=== PATIENT | male | born 1995 | race Caucasian/White ===

== ENCOUNTER 2020-02-01 18:52 | Emergency (ER) | payer SELFPAY ==
[2020-02-01 19:03] VITALS: BP 160/96; PULSE 96; RESP 20; TEMP 37.1; O2SAT 98; BMI 25.0
[2020-02-01 19:17] LABS: Apearance,Urine Cloudy (Clear); Color,Urine Dark Yellow (Yellow); PH,Urine 5.5 (5.0-8.5)
[2020-02-01 19:18] LABS: Bilirubin,Urine 1+ (Negative); Blood, Urine 3+ (Negative); Glucose,Urine (UA) 100 (Negative); Ketones,Urine Negative (Negative); Protein,Urine 1+ (Negative); Specific Gravity, Urine 1.025 (1.005-1.030); UTC Leukocyte Esterase,Urine Negative (Negative); UTC Nitrate,Urine Negative (Negative); Urobilinogen,Urine 0.2 EU/dl (0.2)
--- NOTE | 2020-02-01 19:23 | CT_ITS ---
Procedure: CT ABDOMEN PELVIS WO CON Patient Age:24Y CLINICAL INDICATION: kidney stone Left-sided flank pain with vomiting 3 days. No prior studies COMPARISON: No exams were available for comparison TECHNIQUE: . No IV contrast. Helical axial images obtained with sagittal and coronal reformats. All CT scans at the facility use one or more dose reduction, viz: automated exposure control, ma/kV adjustment per patient size (including targeted exams where dose is matched to indication, i.e. head), or iterative reconstruction technique. FINDINGS: Lower thorax: No acute finding settled basilar atelectasis dependent aspect lower lobes at lung bases. Heart normal size the the ABDOMEN/pelvis but lack of oral and IV contrast decrease sensitivity in particularly evaluate organs: Liver: Diffuse fatty changes of liver but no significant focal lesions or mass. Mild fatty sparing about gallbladder fossa. Gallbladder: Unremarkable but images here is slightly degraded due to streak artifact from adjacent bowel gas/motion Pancreas: Unremarkable on this noncontrast study. Spleen: unremarkable, a normal size Adrenals: unremarkable ---- tract--obstructive uropathy on the left-.: Right kidney.: 2Nonobstructive calculi: 3.5 mm stone mid/upper right kidney 3.5 mm size. Also the 3 mm calculus lower pole right kidney Left kidney: Moderate left hydronephrosis and mild ureteral dilatation down to the level of sacrum due to a 2.5 mm ureteral stone of which approximately at the level of S1/S2, axial image 85 The remaining pelvic ureter distal to this unremarkable.. No additional calculi at the left kidney . Urinary bladder with borderline to mild wall thickness which suspect most likely reflects its lack of distension.. No bladder stones or calculi evident Prostate unremarkable. No free fluid pelvis . ---GI tract: -- Stomach moderately distended, food and fluid-filled stomach No obvious mass or thickening. Small bowel: No obstruction. Upper normal caliber proximal small bowel. Terminal ileum: Undigested food like material distal ileum may reflect diminished peristalsis or incompetent IC valve Appendix: Normal unremarkable. No inflammation Large bowel. Moderate stool and gas throughout the right and transverse colon. Upper normal wall thickness of descending colon and rectosigmoid most likely reflects lack of distension. No pericolic inflammation to suggest colitis Peritoneum: No abnormal fluid collections. No obvious inflammatory changes. No free air. Lymph nodes: No enlarged lymph nodes apparent. Vasculature: . unremarkable no significant findings Osseous structures unremarkable IMPRESSION: 1. obstructive uropathy on the left Mild left hydronephrosis with dilatation left ureter down to the sacrum-due to a 2.5 mm distal left ureteral stone 2. Also incidentally note 2 small nonobstructive calculi at right kidney 3. Diffuse fatty changes the liver/hepatic steatosis . Dictated by: Saurav Diaz MD 02/02/2020 08:48 Electronically signed by Saurav Diaz MD in [place] 02/02/2020 08:48
--- NOTE | 2020-02-01 19:30 | PC.NURSE ---
report received from lani in [facility] for patient to come to ed.
[2020-02-01 19:31] VITALS: BP 122/66; PULSE 90; RESP 20; TEMP 37.3; O2SAT 99; BMI 24.9
--- NOTE | 2020-02-01 19:31 | HMH.EDUTC ---
[facility] [place] Impression: Left flank pain Hematuria Qualifiers: Hematuria type: gross Qualified Code(s): R31.0 - Gross hematuria Disposition: Still a Patient Condition on Discharge: Fair Time of Disposition: 19:20 Medical Decision Making - Medical Records Medical records reviewed: No: I reviewed the patient's medical records. - Bentley Inquiry Pt receiving controlled substance: No Vital Signs: 02/01/20 19:03 Temperature 98.7 F Temperature Source Oral Pulse Rate [Right Brachial] 96 H Respiratory Rate 20 Blood Pressure [Right Arm] 160/96 H Blood Pressure Mean [Right Arm] 117 Blood Pressure Source [Right Arm] Automatic Cuff Blood Pressure Position [Right Arm] Sitting 02 Sat by Pulse Oximetry 98 Oxygen Delivery Method Room Air - Lab Data Lab Results 02/01/20 19:12: Urine Color Dark yellow, Urine Appearance Cloudy, Urine pH 5.5, Ur Specific [place] 1.025, Urine Protein 1+, Urine Glucose (UA) 100, Urine Ketones Negative, Urine Blood 3+, Urine Nitrate Negative, Urine Bilirubin 1+ A, Urine Urobilinogen 0.2, Ur Leukocyte Esterase Negative Orders (Tests/Meds): ED MEDICATIONS Generic Name Dose Route Start Last Admin Trade Name Freq PRN Reason Stop Dose Admin Sodium Chloride 1,000 mls @ 999 mls/hr 02/01/20 19:30 02/01/20 19:27 Sod Chlor 0.9% 1000ml Bag IV 02/01/20 20:30 999 mls/hr .Q1H1M DELL Administration Discontinued Medications Generic Name Dose Route Start Last Admin Trade Name Freq PRN Reason Stop Dose Admin Ketorolac Tromethamine 30 mg 02/01/20 19:23 02/01/20 19:27 Toradol 30mg/Ml Vial IV 02/01/20 19:24 30 mg ONCE ONE Administration Ondansetron HCl 4 mg 02/01/20 19:23 02/01/20 19:27 Zofran 4mg/2ml Vial IV 02/01/20 19:24 4 mg ONCE ONE Administration ORDERS Category Date Time Status CT abdomen pelvis wo con Stat Cat Scan 02/01/20 19:23 Ordered Amylase Stat Lab 02/01/20 19:23 Ordered Complete Blood Count Auto Diff Stat Lab 02/01/20 19:23 Ordered Comprehensive Metabolic Panel Stat Lab 02/01/20 19:23 Ordered Lipase Stat Lab 02/01/20 19:23 Ordered Medical Decision Narrative: I transferred him to the ER due to his urine being frankly bloody and his abdominal and flank pain. [facility] [place] - General Stated complaint: Nauseated, pain in abdomen Time Seen by Provider: 02/01/20 19:05 Mode of Arrival: Ambulatory Source of Information: Patient Limitations: No Limitations Description of Symptoms (Recalled from Triage Doc. by RN): Pt reports abd pain and vomiting x 3 days, pt denies any other symptoms at this time. HEENT Symptoms (Recalled from RN notes): No Resp Symptoms (Recalled from RN notes): No Skin Symptoms (Recalled from RN notes): No MS Symptoms (Recalled from RN notes): No Functional Status (Recalled from RN notes): NA - History of Present Illness Provider Complaint: He reports 3 days of left flank pain. He has also had nausea and vomiting. He denies diarrhea. He states that his urine has been red at times too. He rates his pain as an 8/10. He denies any known history of kidney stones, but states that he has not went to the doctor for much in his life. - Related Data Home Medications Medication Instructions Recorded Confirmed No Known Home Medications 02/01/20 02/01/20 Allergies Allergy/AdvReac Type Severity Reaction Status Date / Time No Known Allergies Allergy Verified 02/01/20 18:59 - Worker's Comp Is this a Worker's Comp case?: No [facility] History - Hepatitis A Screen Drug use history?: No High risk sexual behaviors?: No History of sexually transmitted infection?: No Currently employed?: No Childcare worker?: No Do you have indoor plumbing?: Yes Do you have electricity?: Yes Attestation statement:: This patient has been screened for Hepatitis A risk factors. I have reviewed the patient's past medical history: Yes ROS Obtained: Yes All systems reviewed & no additional complaints - Con
[2020-02-01 19:37] LABS: Basophils % 0.2 % (0.1-2.0); Eosinophils # 0.2 K/mm3 (0.0-0.4); Eosinophils % 1.3 % (0.1-12.0); Hematocrit 50.5 % (42.0-52.0); Hemoglobin 17.8 g/dL (14.1-18.0); Lymphocytes # 1.4 K/mm3 (0.7-4.5); Lymphocytes % 10.5 % (10-50); Mean Corpuscular HGB Conc 35.2 g/dL (31.8-35.4); Mean Corpuscular Hemoglobin 32.5 pg (27.0-31.2); Mean Corpuscular Volume 92.2 fl (80-94); Mean Platelet Volume 7.3 fl (7.4-10.4); Monocytes # 0.2 K/mm3 (0.1-1.0); Monocytes % 1.1 % (1.7-9.3); Neutrophils # 11.8 K/mm3 (1.8-7.8); Neutrophils % 86.8 % (37.0-80.0); Platelet Count 301 K/mm3 (142-424); Red Blood Count 5.47 M/mm3 (4.60-6.20); Red Cell Distribution Width 13.1 % (11.5-17.5); White Blood Count 13.6 K/mm3 (4.8-10.8)
[2020-02-01 19:41] LABS: MANUAL DIFFERENTIAL MANUAL DIFFERENTIAL (MANUAL DIFF)
--- NOTE | 2020-02-01 19:49 | PC.NURSE ---
PATIENT HAS FAMILY MEMBER AT [facility] WHO IS INTERPRETING FOR HIM
--- NOTE | 2020-02-01 19:50 | PC.NURSE ---
to rad via w[facility]
[2020-02-01 19:52] LABS: Alanine Aminotransferase 88 U/L (12-78); Albumin Level 5.2 g/dl (3.5-5.0); Albumin/Globulin Ratio 1.6 (1.1-1.8); Alkaline Phosphatase 111 U/L (38-126); Amylase 79 U/L (30-110); Anion Gap 18.8 mEq/L (5-15); Aspartate Amino Transferase 42 U/L (17-59); Bilirubin,Total 0.8 mg/dl (0.2-1.3); Blood Urea Nitrogen 14 mg/dl (9-20); Calcium 10.2 mg/dl (8.4-10.2); Carbon Dioxide 23 mmol/L (22.0-30.0); Chloride 104 mmol/L (98-107); Creatinine Clearance Estimated 94 mL/min (50-200); Estimated Glomerular Filt Rate 74 ml/min (>60); GFR (African American) 90 ML/MIN (>60); Globulin 3.2 g/dL (1.3-3.2); Glucose 164 mg/dl (74-100); Lipase 36 U/L (23-300); Potassium 3.8 mmoL/L (3.5-5.1); Sodium 142 mmol/L (136-145); Total Protein,Serum 8.4 g/dl (6.3-8.2)
[2020-02-01 19:55] LABS: Lymphocytes % 11 % (10-50); Neutrophils % 86 % (42-76); Total Cells Counted 100
[2020-02-01 19:56] LABS: Platelet Estimate Normal; RBC Morphology Normal
[2020-02-01 20:48] VITALS: BP 122/66; PULSE 90; RESP 20; TEMP 37.3; O2SAT 99
--- NOTE | 2020-02-01 20:49 | HMH.EDUROGM ---
ED Disposition Clinical Impression: Left flank pain, Renal colic on left side Hematuria Qualifiers: Hematuria type: gross Qualified Code(s): R31.0 - Gross hematuria Disposition: Home, Self-Care Condition on Discharge: Good Instructions: DI for Kidney Stones Additional Instructions: fluids and see urology for follow up Prescriptions: Tamsulosin HCl [Flomax 0.4mg capsule] 0.4 mg PO HS #10 cap Transmission Status: Pending to [id number] Referrals: Provider,MD Lynne [Primary Care Provider] - Chai Pruett MD [Staff Physician] - - Critical Care Critical Care Time: No Attestation: On 02/01/20, the high probability of a clinically significant, sudden or life threatening deterioration of the following system(s) required my full and direct attention, intervention and personal management. The time I documented below is in addition to time spent performing reported procedures but includes the following listed in this critical care notation. Medical Decision Making - Medical Records Medical records reviewed: Yes: I reviewed the patient's medical records. - Bentley Inquiry Pt receiving controlled substance: No [place]ley was queried for this patient: No Vital Signs: 02/01/20 19:03 02/01/20 19:31 02/01/20 20:48 Temperature 98.7 F 99.1 F 99.1 F Temperature Source Oral Oral Pulse Rate 90 Pulse Rate [Right Brachial] 96 H 90 Respiratory Rate 20 20 20 Blood Pressure 122/66 Blood Pressure [Right Arm] 160/96 H 122/66 Blood Pressure Mean [Right Arm] 117 84 Blood Pressure Source [Right Arm] Automatic Cuff Automatic Cuff Blood Pressure Position [Right Arm] Sitting Sitting 02 Sat by Pulse Oximetry 98 99 Oxygen Delivery Method Room Air Room Air - Lab Data Lab results reviewed: Yes: I reviewed the patient's lab results. Lab Results 02/01/20 19:12: Urine Color Dark yellow, Urine Appearance Cloudy, Urine pH 5.5, Ur Specific [place] 1.025, Urine Protein 1+, Urine Glucose (UA) 100, Urine Ketones Negative, Urine Blood 3+, Urine Nitrate Negative, Urine Bilirubin 1+ A, Urine Urobilinogen 0.2, Ur Leukocyte Esterase Negative 02/01/20 19:25: WBC 13.6 H, RBC 5.47, Hgb 17.8, Hct 50.5, MCV 92.2, MCH 32.5 H, MCHC 35.2, RDW 13.1, Plt Count 301, MPV 7.3 L, Neut % (Auto) 86.8 H, Lymph % (Auto) 10.5, [place] % (Auto) 1.1 L, Eos % (Auto) 1.3, Baso % (Auto) 0.2, Neut # (Auto) 11.8 H, Lymph # (Auto) 1.4, [place]clean # (Auto) 0.2, Eos # (Auto) 0.2, Baso # (Auto) 0.0, Total Counted 100, Neutrophils % (Manual) 86 H, Band Neutrophils % 3.0, Lymphocytes % (Manual) 11, Platelet Estimate Normal, RBC Morphology Normal 02/01/20 19:25: Sodium 142, Potassium 3.8, Chloride 104, Carbon Dioxide 23, Anion Gap 18.8 H, BUN 14, Creatinine 1.20, Estimated Creat Clear 94, Estimated GFR 74, Est GFR ( Amer) 90, Glucose 164 H, Calcium 10.2, Total Bilirubin 0.8, AST 42, ALT 88 H, Alkaline Phosphatase 111, Total Protein 8.4 H, Albumin 5.2 H, Globulin 3.2, Albumin/Globulin Ratio 1.6, Amylase 79, Lipase 36 Result diagrams: 02/01/20 19:25 02/01/20 19:25 Orders (Tests/Meds): ED MEDICATIONS Generic Name Dose Route Start Last Admin Trade Name Freq PRN Reason Stop Dose Admin Sodium Chloride 1,000 mls @ 999 mls/hr 02/01/20 19:30 02/01/20 19:27 Sod Chlor 0.9% 1000ml Bag IV 02/01/20 20:30 999 mls/hr .Q1H1M DELL Administration Tamsulosin HCl 0.4 mg 02/01/20 21:00 02/01/20 20:45 Flomax 0.4mg Capsule PO 03/02/20 20:59 0.4 mg HS DELL Administration Discontinued Medications Generic Name Dose Route Start Last Admin Trade Name Freq PRN Reason Stop Dose Admin Ketorolac Tromethamine 30 mg 02/01/20 19:23 02/01/20 19:27 Toradol 30mg/Ml Vial IV 02/01/20 19:24 30 mg ONCE ONE Administration Ondansetron HCl 4 mg 02/01/20 19:23 02/01/20 19:27 Zofran 4mg/2ml Vial IV 02/01/20 19:24 4 mg ONCE ONE Administration ORDERS Category Date Time Status CT abdomen pelvis wo con Stat Cat Scan 02/01/20 19:23
== END 2020-02-01 20:55 | disposition home or self-care (01) ==
LOC: UTC 19:14 → ER 19:15
PROVIDERS: Nurse Practitioner Family; Emergency Provider Emergency Medicine
DX: N23 Unspecified renal colic (principal)
CPT/HCPCS: 74176; 80053; 81003; 82150; 83690; 85007; 85025; 96365; 96375; 99283; J2405